=== PATIENT | male | born 1960 | race American Indian/Alaskan Native ===

== ENCOUNTER 2018-01-07 15:51 | Emergency (ER) | payer SELFPAY ==
[2018-01-07 21:04] LABS: Basophils # (Auto) 0.1 K/mm3 (0.0-0.1); Basophils % (Auto) 0.6 % (0.0-1.8); Eosinophils # (Auto) 0.1 K/mm3 (0.0-0.4); Eosinophils % (Auto) 0.4 % (0.0-4.3); Hematocrit 41.6 % (35.5-45.6); Hemoglobin 13.6 gm/dl (11.8-15.2); Lymphocytes # (Auto) 1.5 K/mm3 (1.2-5.4); Lymphocytes % (Auto) 8.6 % (13.4-35.0); Mean Corpuscular HGB Conc 33 % (32-34); Mean Corpuscular Volume 74 fl (84-94); Monocytes # (Auto) 1.2 K/mm3 (0.0-0.8); Monocytes % (Auto) 6.8 % (0.0-7.3); Platelet Count 253 K/mm3 (140-440); Red Blood Count 5.61 M/mm3 (3.65-5.03); Red Cell Distribution Width 16.4 % (13.2-15.2)
[2018-01-07 21:09] LABS: Bilirubin,Urine NEG (Negative); Blood,Urine SM (Negative); Color,Urine Yellow (Yellow); Nitrite,Urine NEG (Negative)
[2018-01-07 21:10] LABS: Mean Corpuscular Hemoglobin 24 pg (28-32)
[2018-01-07 21:16] LABS: BUN/Creatinine Ratio 19; Blood Urea Nitrogen 17 mg/dL (9-20); Calcium 9.5 mg/dL (8.4-10.2); Hemolysis Index 45
[2018-01-07] MEDS ORDERED: NACL 0.9% 1000 ML 1,000 ML IV ONE (21:26)
[2018-01-07] MEDS ORDERED: ROCEPHIN/NS 1 GM/50 ML 1 GM/50 ML BAG IV ONE (21:27)
[2018-01-07 21:30] LABS: Alanine Aminotransferase 14 units/L (7-56); Albumin 4.2 g/dL (3.9-5)
--- NOTE | 2018-01-07 21:30 | Emergency Department Report ---
ED Male HPI - General Chief complaint: Urogenital-Male Stated complaint: FLU LIKE SYMPTOMS Time Seen by Provider: 01/07/18 20:32 Source: patient Mode of arrival: Ambulatory Limitations: No Limitations - History of Present Illness Initial comments: 57-year-old male past medical history none presents with complaint of 2-3 days of weakness dysuria or increased urinary frequency and slight right sided flank pain. Patient is awake alert and oriented 3 denies nausea or vomiting. Patient tolerating by mouth fluids without difficulty. States he has had some chills. Denies chest pain palpitations nausea or vomiting. Patient accompanied by at bedside MD Complaint: dysuria (increased urinary frequency) Onset/Timin -: days(s) Worsens with: none - Related Data Previous Rx's Medication Instructions Recorded Last Taken Type Ibuprofen [Motrin 400 MG tab] 400 mg PO Q8H PRN #20 tablet 03/01/16 Unknown Rx amLODIPine [Norvasc] 5 mg PO DAILY #30 tab 03/01/16 Unknown Rx traMADol [Ultram 50 MG tab] 50 mg PO Q6HR PRN #20 tablet 03/01/16 Unknown Rx Acetaminophen [Acetaminophen TAB] 500 mg PO Q6HR PRN #20 tablet 01/08/18 Unknown Rx Ciprofloxacin HCl [Cipro] 500 mg PO BID #28 tablet 01/08/18 Unknown Rx Phenazopyridine [Pyridium] 100 mg PO TID #6 tab 01/08/18 Unknown Rx Allergies Allergy/AdvReac Type Severity Reaction Status Date / Time No Known Allergies Allergy Unverified 03/01/16 08:57 ED Review of Systems ROS: Stated complaint: FLU LIKE SYMPTOMS Other details as noted in HPI Constitutional: denies: chills, fever Eyes: denies: eye pain, eye discharge, vision change ENT: denies: ear pain, throat pain Respiratory: denies: cough, shortness of breath, wheezing Cardiovascular: denies: chest pain, palpitations Endocrine: no symptoms reported Gastrointestinal: denies: abdominal pain, nausea, diarrhea Genitourinary: frequency. denies: urgency, dysuria Musculoskeletal: denies: back pain, joint swelling, arthralgia Skin: denies: rash, lesions Neurological: denies: headache, weakness, paresthesias Psychiatric: denies: anxiety, depression Hematological/Lymphatic: denies: easy bleeding, easy bruising ED Past Medical Hx - Past Medical History Previous Medical History?: Yes Hx Hypertension: Yes (no meds x 2 yrs) Additional medical history: ulcers, anemia - Surgical History Past Surgical History?: No - Social History Smoking Status: Never Smoker Substance Use Type: None - Medications Home Medications: Home Medications Medication Instructions Recorded Confirmed Last Taken Type Ibuprofen [Motrin 400 MG tab] 400 mg PO Q8H PRN #20 tablet 03/01/16 Unknown Rx amLODIPine [Norvasc] 5 mg PO DAILY #30 tab 03/01/16 Unknown Rx traMADol [Ultram 50 MG tab] 50 mg PO Q6HR PRN #20 tablet 03/01/16 Unknown Rx Acetaminophen [Acetaminophen TAB] 500 mg PO Q6HR PRN #20 tablet 01/08/18 Unknown Rx Ciprofloxacin HCl [Cipro] 500 mg PO BID #28 tablet 01/08/18 Unknown Rx Phenazopyridine [Pyridium] 100 mg PO TID #6 tab 01/08/18 Unknown Rx ED Physical Exam - General Limitations: No Limitations General appearance: alert, in no apparent distress - Head Head exam: Present: atraumatic, normocephalic - Eye Eye exam: Present: normal appearance, PERRL, EOMI - ENT ENT exam: Present: mucous membranes moist - Neck Neck exam: Present: normal inspection - Respiratory Respiratory exam: Present: normal lung sounds bilaterally. Absent: respiratory distress - Cardiovascular Cardiovascular Exam: Present: regular rate, normal rhythm. Absent: systolic murmur, diastolic murmur, rubs, gallop - GI/Abdominal GI/Abdominal exam: Present: soft, normal bowel sounds - Rectal Rectal exam: Present: deferred - Extremities Exam Extremities exam: Present: normal inspection - Back Exam Back exam: Present: normal inspection - Neurological Exam Neurological exam: Present: alert, oriented X3, CN II-XII intact, normal gait - Psychiatric Psychiatric exam: Present: normal affect, normal mood - Skin Skin exam: Present: warm, dry, intact, normal color. Absent: rash ED Course Vital Signs 01/07/18 01/07/18 16:07 20:09 Temperature 97.8 F 99.0 F Pulse Rate 70 70 Respiratory 19 18 Rate Blood Pressure 156/90 Blood Pressure 159/84 [Left] O2 Sat by Pulse 99 97 Oximetry ED Medical Decision Making - Lab Data Result diagrams: 01/07/18 20:48 01/07/18 20:48 - Medical Decision Making A/P: Urinary tract infection, asymptomatic htn 1-case discussed with Dr. Norris 2-CT shows no pyelonephritis, will treat patient empirically with Cipro 500mg bid 14 days course as per Dr. Norris. I gave the patient strict precautions to return to the ED if he experiences inability to tolerate by mouth worsened abdominal pain persistent fever and chills. Pt agreed to this plan 3-follow-up with primary care and urology 4- asymptomatic hypertension. Patient denies chest pain palpitations headache dizziness or paresthesias. Patient to follow up with primary care. Critical care attestation.: If time is entered above; I have spent that time in minutes in the direct care of this critically ill patient, excluding procedure time. ED Disposition Clinical Impression: Asymptomatic hypertension Urinary tract infection Qualifiers: Urinary tract infection type: acute cystitis Hematuria presence: without hematuria Qualified Code(s): N30.00 - Acute cystitis without hematuria Disposition: TO HOME OR SELFCARE Is pt being admited?: No Does the pt Need Aspirin: No Condition: Stable Instructions: Hypertension (ED), Urinary Tract Infection in Men (ED) Prescriptions: Acetaminophen [Acetaminophen TAB] 500 mg PO Q6HR PRN #20 tablet PRN Reason: Fever Ciprofloxacin HCl [Cipro] 500 mg PO BID #28 tablet Phenazopyridine [Pyridium] 100 mg PO TID #6 tab Referrals: [facility] [Provider Group] - 3-5 Days [facility] [Outside] - 3-5 Days [facility] [Outside] - 3-5 Days Forms: Accompanied Note, Work/School Release Form(ED) Time of Disposition: 01:57
[2018-01-07 21:31] LABS: Bilirubin,Direct < 0.2 mg/dL (0-0.2)
[2018-01-07] MEDS ORDERED: cefTRIAXone 1 GM in NACL 0.9% 20 ML IV ONE (22:00)
[2018-01-08] MEDS ORDERED: NACL ONE (00:37)
--- NOTE | 2018-01-08 01:29 | Cat Scan Report ---
FINAL REPORT PROCEDURE: CT ABDOMEN PELVIS W CON TECHNIQUE: Computerized axial tomography of the abdomen and pelvis was performed after the IV injection of iodinated nonionic contrast. HISTORY: pyelonephritis COMPARISON: No prior studies are available for comparison. FINDINGS: Visualized lower thorax: No significant abnormality. Liver: There is fatty infiltration of the liver. There is enhancing mass in the left lobe measuring 3 centimeters. This could be an atypical hemangioma. Possibility of adenoma or malignancy not excluded. Further evaluation with MRI may be helpful.. Spleen: Normal size and attenuation. Gallbladder and biliary system: Normal. Pancreas: Normal. Adrenals: Normal. Kidneys: There are small kidney cysts and tiny nonobstructing stones bilaterally. There is no hydronephrosis.. GI tract: There is no bowel obstruction. There are diverticula of the colon. There is no diverticulitis, colitis, obstruction or mass. The appendix is normal.. Lymph nodes and mesentery: Normal. Vasculature: There is calcified plaque in the abdominal aorta. There is no aneurysm.. Bladder: Normal. Reproductive organs: Normal. Peritoneum: There is no ascites or free air, abscess or adenopathy.. Musculoskeletal structures: No significant abnormality. Other: None. IMPRESSION: There is fatty infiltration of the liver. There is enhancing mass in the left lobe measuring 3 centimeters. This could be an atypical hemangioma. Possibility of adenoma or malignancy not excluded. Further evaluation with MRI may be helpful.. There are small kidney cysts and tiny nonobstructing stones bilaterally. There is no hydronephrosis.. There is no bowel obstruction. There are diverticula of the colon. There is no diverticulitis, colitis, obstruction or mass. The appendix is normal.. There is no ascites or free air, abscess or adenopathy..
[2018-01-08 01:57] VITALS: BP 190/97
== END 2018-01-08 02:07 | disposition home or self-care (01) ==
LOC: ED 15:51
DX: N39.0 Urinary tract infection, site not specified (principal); I10 Essential (primary) hypertension
CPT/HCPCS: 36415; 74177; 80048; 80074; 81001; 82140; 82550; 82805; 84484; 85025; 87086; 93005; 93010; 96361; 96374; 96375; 99284; J0696; J7030; Q9967; 87076; 87186

== ENCOUNTER 2019-10-26 01:51 | Emergency (ER) | payer SELFPAY ==
[2019-10-26] MEDS ORDERED: LISINOPRIL 20 MG TAB PO ONE (02:59)
[2019-10-26] MEDS ORDERED: IBUPROFEN 800 MG TAB PO ONE (03:00)
[2019-10-26] MEDS ORDERED: oxyCODONE /ACETAMINOPHEN 5-325MG TAB PO ONE (03:00)
[2019-10-26] MEDS ORDERED: hydroCHLOROthiazide 25 MG TAB PO ONE (03:01)
--- NOTE | 2019-10-26 03:08 | Emergency Department Report ---
ED General Adult HPI - General Chief complaint: Extremity Injury, Lower Stated complaint: RT FOOT AND TOE PAIN Time Seen by Provider: 10/26/19 02:56 Source: patient Mode of arrival: Ambulatory Limitations: No Limitations - History of Present Illness Initial comments: Mr. Rogers is a 59 yo male with hx of HTN, gout, anemia who presents with right big toe pain for 3 days. Modateraly severe pain with swelling at the joint. No injury. Last flare up several years ago. Has not taken blood pressure medication in over a year. Does not have a PCP or health insurance. He has been symptom free. He explains "I feel fine." Denies headache, chest pain, b lurry vision, paresthesias. According to EMR, SBP 222 mm HG during previous ED evaluation. -: Gradual, days(s) (3) Location: lower extremity Radiation: non-radiation Severity scale (0 -10): 7 Quality: aching Consistency: constant Improves with: none Worsens with: none Associated Symptoms: denies other symptoms - Related Data Previous Rx's Medication Instructions Recorded Last Taken Type Ibuprofen [Motrin 400 MG tab] 400 mg PO Q8H PRN #20 tablet 03/01/16 Unknown Rx amLODIPine 5 mg PO DAILY #30 tab 03/01/16 Unknown Rx traMADoL [Ultram 50 MG tab] 50 mg PO Q6HR PRN #20 tablet 03/01/16 Unknown Rx Acetaminophen [Acetaminophen TAB] 500 mg PO Q6HR PRN #20 tablet 01/08/18 Unknown Rx Ciprofloxacin HCl [Cipro] 500 mg PO BID #28 tablet 01/08/18 Unknown Rx Phenazopyridine [Pyridium] 100 mg PO TID #6 tab 01/08/18 Unknown Rx Amlodipine Besylate [Norvasc] 10 mg PO QAM 30 Days #30 tablet 11/03/18 Unknown Rx Amoxicillin/K Clav Tab [Augmentin 1 tab PO Q12HR #20 tab 11/03/18 Unknown Rx 875MG TAB] Cetirizine HCl [ZyrTEC] 10 mg PO QAM 14 Days #14 capsule 11/03/18 Unknown Rx Fluticasone [Flonase] 1 spray NS QDAY 14 Days #1 bottle 11/03/18 Unknown Rx Ibuprofen [Motrin] 600 mg PO Q8H PRN #12 tablet 11/03/18 Unknown Rx hydroCHLOROthiazide [HCTZ] 25 mg PO QDAY 30 Days #30 tablet 11/03/18 Unknown Rx predniSONE [Deltasone] 50 mg PO QDAY 3 Days #3 tab 11/03/18 Unknown Rx Colchicine 2 tab PO Q1H #3 capsule 10/26/19 Unknown Rx Ibuprofen [Motrin 400 MG tab] 400 mg PO TID 3 Days #9 tablet 10/26/19 Unknown Rx Lisinopril/Hydrochlorothiazide 1 tab PO QDAY 30 Days #30 tab 10/26/19 Unknown Rx [Zestoretic 20-25 mg] oxyCODONE /ACETAMINOPHEN [Percocet 1 tab PO Q6HR PRN #10 tablet 10/26/19 Unknown Rx 5/325] Allergies Allergy/AdvReac Type Severity Reaction Status Date / Time No Known Allergies Allergy Unverified 03/01/16 08:57 ED Review of Systems ROS: Stated complaint: RT FOOT AND TOE PAIN Other details as noted in HPI Comment: All other systems reviewed and negative Constitutional: denies: fever, malaise Cardiovascular: denies: chest pain Gastrointestinal: denies: abdominal pain Musculoskeletal: myalgia ED Past Medical Hx - Past Medical History Previous Medical History?: Yes Hx Hypertension: Yes (no meds x 2 yrs) Additional medical history: ulcers, anemia, GOUT - Surgical History Past Surgical History?: No - Social History Smoking Status: Never Smoker Other Social History: , lives with - Medications Home Medications: Home Medications Medication Instructions Recorded Confirmed Last Taken Type Ibuprofen [Motrin 400 MG tab] 400 mg PO Q8H PRN #20 tablet 03/01/16 Unknown Rx amLODIPine 5 mg PO DAILY #30 tab 03/01/16 Unknown Rx traMADoL [Ultram 50 MG tab] 50 mg PO Q6HR PRN #20 tablet 03/01/16 Unknown Rx Acetaminophen [Acetaminophen TAB] 500 mg PO Q6HR PRN #20 tablet 01/08/18 Unknown Rx Ciprofloxacin HCl [Cipro] 500 mg PO BID #28 tablet 01/08/18 Unknown Rx Phenazopyridine [Pyridium] 100 mg PO TID #6 tab 01/08/18 Unknown Rx Amlodipine Besylate [Norvasc] 10 mg PO QAM 30 Days #30 tablet 11/03/18 Unknown Rx Amoxicillin/K Clav Tab [Augmentin 1 tab PO Q12HR #20 tab 11/03/18 Unknown Rx 875MG TAB] Cetirizine HCl [ZyrTEC] 10 mg PO QAM 14 Days #14 capsule 11/03/18 Unknown Rx Fluticasone [Flonase] 1 spray NS QDAY 14 Days #1 bottle 11/03/18 Unknown Rx Ibuprofen [Motrin] 600 mg PO Q8H PRN #12 tablet 11/03/18 Unknown Rx hydroCHLOROthiazide [HCTZ] 25 mg PO QDAY 30 Days #30 tablet 11/03/18 Unknown Rx predniSONE [Deltasone] 50 mg PO QDAY 3 Days #3 tab 11/03/18 Unknown Rx Colchicine 2 tab PO Q1H #3 capsule 10/26/19 Unknown Rx Ibuprofen [Motrin 400 MG tab] 400 mg PO TID 3 Days #9 tablet 10/26/19 Unknown Rx Lisinopril/Hydrochlorothiazide 1 tab PO QDAY 30 Days #30 tab 10/26/19 Unknown Rx [Zestoretic 20-25 mg] oxyCODONE /ACETAMINOPHEN [Percocet 1 tab PO Q6HR PRN #10 tablet 10/26/19 Unknown Rx 5/325] ED Physical Exam - General Limitations: No Limitations General appearance: alert, in no apparent distress - Head Head exam: Present: atraumatic, normocephalic - Eye Eye exam: Present: normal appearance - ENT ENT exam: Present: mucous membranes moist - Neck Neck exam: Present: normal inspection, full ROM - Respiratory Respiratory exam: Present: normal lung sounds bilaterally. Absent: respiratory distress, wheezes, rales - Cardiovascular Cardiovascular Exam: Present: regular rate, normal rhythm, normal heart sounds. Absent: systolic murmur, diastolic murmur, rubs, gallop - GI/Abdominal GI/Abdominal exam: Present: soft, normal bowel sounds. Absent: distended, tenderness, guarding, rebound - Extremities Exam Extremities exam: Present: other (right foot: great toe mild edema, redness tenderness slight MTP lichenification of skin at heel posterior foot) - Back Exam Back exam: Present: normal inspection - Neurological Exam Neurological exam: Present: alert, oriented X3 - Psychiatric Psychiatric exam: Present: normal affect, normal mood - Skin Skin exam: Present: warm, dry, intact, normal color. Absent: rash ED Course Vital Signs 10/26/19 10/26/19 10/26/19 02:26 02:57 03:00 Temperature 97.8 F 98 F Pulse Rate 52 L 56 L 53 L Respiratory 18 19 20 Rate Blood Pressure 230/106 225/112 Blood Pressure 223/102 [Left] O2 Sat by Pulse 97 99 99 Oximetry 10/26/19 10/26/19 10/26/19 03:16 03:30 04:00 Temperature Pulse Rate 50 L 50 L 51 L Respiratory 15 16 15 Rate Blood Pressure 225/112 213/113 180/87 Blood Pressure [Left] O2 Sat by Pulse 100 99 98 Oximetry ED Medical Decision Making - Lab Data Result diagrams: 10/26/19 02:48 10/26/19 02:48 - Medical Decision Making 1. Arthropathy of the right foot prescribed Percocet ibuprofen colchicine given referral to outside clinic 2. hypertensive urgency, I provided verbal and written education regarding diagnosis and potential complications of untreated hypertension. No evidence of end organ damage. Chemistry within normal limits. Normal kidney function. I have prescribed lisinopril and hydrochlorothiazide. I educated patient on the risk of angioedema and hypokalemia. Discharge home. Given referrals to outside physician and clinic. I have review labs. H&H within normal limits. Nonspecific leukocytosis. I do not suspect sepsis or acute infection. I do not suspect foot cellulitis. Critical care attestation.: If time is entered above; I have spent that time in minutes in the direct care of this critically ill patient, excluding procedure time. ED Disposition Clinical Impression: Gout attack, Gout of right foot, Hypertensive urgency, malignant Disposition: DC-01 TO HOME OR SELFCARE Is pt being admited?: No Does the pt Need Aspirin: No Condition: Stable Instructions: Acute Gouty Arthritis (ED), Hypertension (ED) Prescriptions: Colchicine 2 tab PO Q1H #3 capsule Ibuprofen [Motrin 400 MG tab] 400 mg PO TID 3 Days #9 tablet oxyCODONE /ACETAMINOPHEN [Percocet 5/325] 1 tab PO Q6HR PRN #10 tablet PRN Reason: Pain Lisinopril/Hydrochlorothiazide [Zestoretic 20-25 mg] 1 tab PO QDAY 30 Days #30 tab Referrals: ULISES BRANTLEY MD [Staff Physician] - 3-5 Days [facility] [Outside] - 3-5 Days
[2019-10-26 03:17] LABS: Basophils # (Auto) 0.1 K/mm3 (0.0-0.1); Basophils % (Auto) 0.7 % (0.0-1.8); Eosinophils # (Auto) 0.3 K/mm3 (0.0-0.4); Eosinophils % (Auto) 2.2 % (0.0-4.3); Hematocrit 40.9 % (35.5-45.6); Hemoglobin 13.2 gm/dl (11.8-15.2); Lymphocytes # (Auto) 2.4 K/mm3 (1.2-5.4); Mean Corpuscular HGB Conc 32 % (32-34); Mean Corpuscular Volume 74 fl (84-94); Monocytes # (Auto) 0.9 K/mm3 (0.0-0.8); Monocytes % (Auto) 6.6 % (0.0-7.3); Platelet Count 281 K/mm3 (140-440); Red Blood Count 5.54 M/mm3 (3.65-5.03); Red Cell Distribution Width 17.1 % (13.2-15.2)
[2019-10-26 03:39] LABS: Alanine Aminotransferase 16 units/L (7-56); Albumin 4.3 g/dL (3.9-5); BUN/Creatinine Ratio 18; Blood Urea Nitrogen 18 mg/dL (9-20); Calcium 9.7 mg/dL (8.4-10.2); Hemolysis Index 6
[2019-10-26 05:25] VITALS: BP 175/91
== END 2019-10-26 05:10 | disposition home or self-care (01) ==
LOC: ED 01:51
DX: M10.9 Gout, unspecified (principal); I16.0 Hypertensive urgency; I10 Essential (primary) hypertension
CPT/HCPCS: 36415; 80053; 85025

== ENCOUNTER 2019-12-15 17:45 | Emergency (ER) | payer SELFPAY ==
--- NOTE | 2019-12-15 18:05 | Emergency Department Report ---
Blank Doc - Documentation Documentation: 59-year-old male that presents with abdominal pain and diarrhea. This initial assessment/diagnostic orders/clinical plan/treatment(s) is/are subject to change based on patient's health status, clinical progression and re- assessment by fellow clinical providers in the ED. Further treatment and workup at subsequent clinical providers discretion. Patient/guardians urged not to elope from the ED as their condition may be serious if not clinically assessed and managed. Initial orders include: 1- Patient sent to [facility] for further evaluation and treatment 2- labs 3- UA
[2019-12-15 18:07] VITALS: BP 178/85
[2019-12-15 18:29] LABS: Bilirubin,Urine NEG (Negative); Blood,Urine SM (Negative); Color,Urine Yellow (Yellow); Hyaline Casts,Urine 1 /LPF; Mucus,Urine 1+ /HPF; Protein,Urine <15 mg/dL mg/dL (Negative); Urobilinogen,Urine < 2.0 mg/dL (<2.0)
[2019-12-15 18:51] LABS: Basophils # (Auto) 0.1 K/mm3 (0.0-0.1); Basophils % (Auto) 0.4 % (0.0-1.8); Eosinophils # (Auto) 0.3 K/mm3 (0.0-0.4); Eosinophils % (Auto) 2.5 % (0.0-4.3); Hematocrit 40.6 % (35.5-45.6); Hemoglobin 13.6 gm/dl (11.8-15.2); Lymphocytes % (Auto) 8.1 % (13.4-35.0); Mean Corpuscular HGB Conc 34 % (32-34); Mean Corpuscular Volume 73 fl (84-94); Monocytes % (Auto) 7.6 % (0.0-7.3); Platelet Count 315 K/mm3 (140-440); Red Blood Count 5.57 M/mm3 (3.65-5.03)
[2019-12-15 19:13] LABS: Alanine Aminotransferase 11 units/L (7-56); Albumin 3.9 g/dL (3.9-5); BUN/Creatinine Ratio 13; Blood Urea Nitrogen 12 mg/dL (9-20); Calcium 9.8 mg/dL (8.4-10.2); Hemolysis Index 4
[2019-12-15] MEDS ORDERED: fentaNYL 100 MCG/2 ML INJ IV ONE (21:35)
[2019-12-15] MEDS ORDERED: ONDANSETRON 4 MG/2 ML INJ IV ONE (21:35)
[2019-12-15] MEDS ORDERED: SODIUM CHLORIDE 0.9% 1000 ML 1,000 ML IV ONE (21:35)
--- NOTE | 2019-12-15 21:40 | Emergency Department Report ---
HPI - General Chief Complaint: Abdominal Pain Time Seen by Provider: 12/15/19 18:04 - HPI HPI: Room 38 The patient is a 59-year-old male presented with a chief complaint of a dull pain and diarrhea. Patient states his symptoms began 2.5 days ago with m idepigastric hurting pain that has been intermittent and associated with significant diarrhea. Patient denies nausea vomiting. Patient denies recent antibiotic use. Patient denies sick contacts. Patient denies history of fever. The patient gives his abdominal pain a score of 8/10 Location: [See above] Duration: [See above] Quality: [See above] Severity: [See above] Timing: [See above] Context: [See above] Modifying factors: [See above] Associated signs and symptoms: [see above] ED Past Medical Hx - Past Medical History Hx Hypertension: Yes (no meds x 2 yrs) Additional medical history: ulcers, anemia, GOUT - Surgical History Past Surgical History?: No - Family History Family history: no significant - Social History Smoking Status: Former Smoker (none 13 years) Substance Use Type: None (denies illicit drug use), Alcohol (rarely) - Medications Home Medications: Home Medications Medication Instructions Recorded Confirmed Last Taken Type Ibuprofen [Motrin 400 MG tab] 400 mg PO Q8H PRN #20 tablet 03/01/16 Unknown Rx amLODIPine 5 mg PO DAILY #30 tab 03/01/16 Unknown Rx traMADoL [Ultram 50 MG tab] 50 mg PO Q6HR PRN #20 tablet 03/01/16 Unknown Rx Acetaminophen [Acetaminophen TAB] 500 mg PO Q6HR PRN #20 tablet 01/08/18 Unknown Rx Ciprofloxacin HCl [Cipro] 500 mg PO BID #28 tablet 01/08/18 Unknown Rx Phenazopyridine [Pyridium] 100 mg PO TID #6 tab 01/08/18 Unknown Rx Amlodipine Besylate [Norvasc] 10 mg PO QAM 30 Days #30 tablet 11/03/18 Unknown Rx Amoxicillin/K Clav Tab [Augmentin 1 tab PO Q12HR #20 tab 11/03/18 Unknown Rx 875MG TAB] Cetirizine HCl [ZyrTEC] 10 mg PO QAM 14 Days #14 capsule 11/03/18 Unknown Rx Fluticasone [Flonase] 1 spray NS QDAY 14 Days #1 bottle 11/03/18 Unknown Rx Ibuprofen [Motrin] 600 mg PO Q8H PRN #12 tablet 11/03/18 Unknown Rx hydroCHLOROthiazide [HCTZ] 25 mg PO QDAY 30 Days #30 tablet 11/03/18 Unknown Rx predniSONE [Deltasone] 50 mg PO QDAY 3 Days #3 tab 11/03/18 Unknown Rx Colchicine 2 tab PO Q1H #3 capsule 10/26/19 Unknown Rx Ibuprofen [Motrin 400 MG tab] 400 mg PO TID 3 Days #9 tablet 10/26/19 Unknown Rx Lisinopril/Hydrochlorothiazide 1 tab PO QDAY 30 Days #30 tab 10/26/19 Unknown Rx [Zestoretic 20-25 mg] oxyCODONE /ACETAMINOPHEN [Percocet 1 tab PO Q6HR PRN #10 tablet 10/26/19 Unknown Rx 5/325] Ciprofloxacin HCl [Ciprofloxacin 500 mg PO Q12HR #20 tab 12/15/19 Unknown Rx TAB] Diphenoxylate/Atropine [Lomotil] 1 - 2 tab PO QID PRN #20 tablet 12/15/19 Unknown Rx HYDROcodone/APAP 5-325 [[place] 1 - 2 each PO Q6HR PRN #14 tablet 12/15/19 Unknown Rx 5/325] metroNIDAZOLE [Flagyl] 500 mg PO Q8HR #30 tablet 12/15/19 Unknown Rx ED Review of Systems ROS: Stated complaint: ABD PAIN/DIARRHEA Other details as noted in HPI Constitutional: denies: fever Eyes: denies: eye pain ENT: denies: throat pain Respiratory: no symptoms reported Cardiovascular: denies: chest pain Endocrine: no symptoms reported Gastrointestinal: abdominal pain, diarrhea. denies: nausea, vomiting Genitourinary: denies: dysuria Musculoskeletal: denies: back pain Neurological: denies: headache Physical Exam - Physical Exam Vital Signs: Vital Signs 12/15/19 18:05 Temperature 98.6 F Pulse Rate 66 Respiratory 18 Rate Blood Pressure 178/85 O2 Sat by Pulse 98 Oximetry Physical Exam: GENERAL: The patient is well-developed well-nourished male lying on stretcher not appearing to be in acute distress. [] HEENT: Normocephalic. Atraumatic. Extraocular motions are intact. Patient has moist mucous membranes. NECK: Supple. Trachea midline CHEST/LUNGS: Clear to auscultation. There is no respiratory distress noted. HEART/CARDIOVASCULAR: Regular. There is no tachycardia. There is no gallop rub or murmur. ABDOMEN: Abdomen is soft, with mild discomfort to palpation in the midepigastric and right upper quadrant. There is no rebound or guarding. Patient has normal bowel sounds. There is no abdominal distention. SKIN: There is no rash. There is no edema. There is no diaphoresis. NEURO: The patient is awake, alert, and oriented. The patient is cooperative. The patient has normal speech MUSCULOSKELETAL: There is no evidence of acute injury. ED Course Vital Signs 12/15/19 18:05 Temperature 98.6 F Pulse Rate 66 Respiratory 18 Rate Blood Pressure 178/85 O2 Sat by Pulse 98 Oximetry ED Medical Decision Making - Lab Data Result diagrams: 12/15/19 18:32 12/15/19 18:32 - Radiology Data Radiology results: report reviewed (CT abdomen and pelvis), image reviewed (CT abdomen and pelvis) [place] [address] Cat Scan Report Signed Patient: MANDY YANG MR#: [id number] 6 : 1960 Acct:[id number] Age/Sex: 59 / M ADM Date: 12/15/19 Loc: ED Attending Dr: Ordering Physician: RELL WEST MD Date of Service: 12/15/19 Procedure(s): CT abdomen pelvis w con Accession Number(s): [id number] cc: RELL WEST MD CT ABDOMEN AND PELVIS WITH IV CONTRAST INDICATION: epigastric abdominal pain, diarrhea. COMPARISON: CT 01/08/2018. TECHNIQUE: All CT scans at this facility use dose modulation, automated exposure control, iterative reconstruction or weight based dosing, when appropriate, to reduce radiation dose to as low as reasonably achievable. FINDINGS: Lung Bases: No significant abnormality. Skeletal System: No acute abnormality. ABDOMEN: Liver: No acute findings. Hypodense lesion in the left lobe with mild peripheral enhancement is likely a hemangioma. Gallbladder: No significant abnormality. Bile Ducts: No significant abnormality. Pancreas: No significant abnormality. Spleen: No significant abnormality. Adrenals: No significant abnormality. Right Kidney: There are a few punctate nonobstructing calyceal stones. Punctate renal cysts are again noted as well. Left Kidney: There is a single nonobstructing calyceal stones. Simple cysts are again noted. Upper GI tract: No significant abnormality. Lymph Nodes: No significant adenopathy. Aorta: No significant abnormality. Additional Findings: No significant abnormality. PELVIS: Colon: There is extensive diverticulosis, greatest in the transverse colon. Distal sigmoid and rectal wall thickening is noted. Urinary Bladder and Distal Ureters: No significant abnormality. Appendix: No significant abnormality. Lymph Nodes: No significant adenopathy. Additional Findings: None. IMPRESSION: 1. Distal colitis no free fluid or obstruction. 2. Incidental findings, as above. Signer Name: Steve Nelson MD Signed: 12/15/2019 10:53 PM Workstation Name: [id number] Transcribed By: SW Dictated By: Steve Nelson MD Electronically Authenticated By: Steve Nelson MD Signed Date/Time: 12/15/192252 DD/ 48 TD/TT: - Differential Diagnosis pancreatitis, gastroenteritis, enteritis, partial small bowel obstruction Critical care attestation.: If time is entered above; I have spent that time in minutes in the direct care of this critically ill patient, excluding procedure time. ED Disposition Clinical Impression: Acute abdominal pain, Acute colitis Disposition: - TO HOME OR SELFCARE Is pt being admited?: No Does the pt Need Aspirin: No Condition: Stable Instructions: Infectious Colitis (ED) Additional Instructions: Return to the emergency department should you develop worsening symptoms, inabi lity to tolerate food or liquids, high fever or any other concerns Prescriptions: Ciprofloxacin HCl [Ciprofloxacin TAB] 500 mg PO Q12HR #20 tab metroNIDAZOLE [Flagyl] 500 mg PO Q8HR #30 tablet Diphenoxylate/Atropine [Lomotil] 1 - 2 tab PO QID PRN #20 tablet PRN Reason: Diarrhea HYDROcodone/APAP 5-325 [[place] 5/325] 1 - 2 each PO Q6HR PRN #14 tablet PRN Reason: Pain Referrals: ARGENTINA SINGLETARY MD [Staff Physician] - 3-5 Days (Dr. Singletary is a make up operator helper. Please follow-up with him for further evaluation) Time of Disposition: 23:08
--- NOTE | 2019-12-15 22:57 | Cat Scan Report ---
CT ABDOMEN AND PELVIS WITH IV CONTRAST INDICATION: epigastric abdominal pain, diarrhea. COMPARISON: CT 01/08/2018. TECHNIQUE: All CT scans at this facility use dose modulation, automated exposure control, iterative reconstructi on or weight based dosing, when appropriate, to reduce radiation dose to as low as reasonably achieva ble. FINDINGS: Lung Bases: No significant abnormality. Skeletal System: No acute abnormality. ABDOMEN: Liver: No acute findings. Hypodense lesion in the left lobe with mild peripheral enhancement is likel y a hemangioma. Gallbladder: No significant abnormality. Bile Ducts: No significant abnormality. Pancreas: No significant abnormality. Spleen: No significant abnormality. Adrenals: No significant abnormality. Right Kidney: There are a few punctate nonobstructing calyceal stones. Punctate renal cysts are again noted as well. Left Kidney: There is a single nonobstructing calyceal stones. Simple cysts are again noted. Upper GI tract: No significant abnormality. Lymph Nodes: No significant adenopathy. Aorta: No significant abnormality. Additional Findings: No significant abnormality. PELVIS: Colon: There is extensive diverticulosis, greatest in the transverse colon. Distal sigmoid and rect al wall thickening is noted. Urinary Bladder and Distal Ureters: No significant abnormality. Appendix: No significant abnormality. Lymph Nodes: No significant adenopathy. Additional Findings: None. IMPRESSION: 1. Distal colitis no free fluid or obstruction. 2. Incidental findings, as above. Signer Name: Steve Nelson MD Signed: 12/15/2019 10:53 PM Workstation Name: [id number]
[2019-12-15] MEDS ORDERED: DIPHENOXYLATE/ATROPINE TAB PO ONE (23:05)
== END 2019-12-15 23:30 | disposition home or self-care (01) ==
LOC: ED 17:45
DX: K52.89 Other specified noninfective gastroenteritis and colitis (principal)
CPT/HCPCS: 36415; 74177; 80053; 81001; 83690; 85025; 96361; 96374; 96375; 99284; J2405; J3010; J7030; Q9967

== ENCOUNTER 2019-12-25 17:28 | Emergency (ER) | payer SELFPAY ==
[2019-12-25 18:04] VITALS: BP 214/97
--- NOTE | 2019-12-25 18:48 | Emergency Department Report ---
ED Lower Extremity HPI - General Chief Complaint: Extremity Problem,Nontraumatic Stated Complaint: FEET PAIN, SWOLLEN Time Seen by Provider: 12/25/19 18:44 Source: patient Mode of arrival: Ambulatory Limitations: No Limitations - History of Present Illness Initial Comments: This is a 59-year-old male nontoxic, well nourished in appearance, no acute sign s of distress presents to the ED with c/o of acute on chronic left ankle swelling and pain. Patient stated history of gout and symptoms are similar. Patient denies any new trauma or injuries. Denies decreased ROM, joint swelling, redness, or abnormal gait. Denies any fever, chills, nausea, vomiting, headache, stiff neck, chest pain or shortness of breath. Patient denies any numbness or tingling. Denies any allergies. -: days(s) Injury: Ankle: Left Severity: mild Severity scale (0 -10): 3 Improves With: nothing Worsens With: nothing Associated Symptoms: swelling, able to partially bear weight, ambulatory. denies: snap/pop sensation, numbness, tingling, unable to bear weight - Related Data Previous Rx's Medication Instructions Recorded Last Taken Type Ibuprofen [Motrin 400 MG tab] 400 mg PO Q8H PRN #20 tablet 03/01/16 Unknown Rx amLODIPine 5 mg PO DAILY #30 tab 03/01/16 Unknown Rx traMADoL [Ultram 50 MG tab] 50 mg PO Q6HR PRN #20 tablet 03/01/16 Unknown Rx Acetaminophen [Acetaminophen TAB] 500 mg PO Q6HR PRN #20 tablet 01/08/18 Unknown Rx Ciprofloxacin HCl [Cipro] 500 mg PO BID #28 tablet 01/08/18 Unknown Rx Phenazopyridine [Pyridium] 100 mg PO TID #6 tab 01/08/18 Unknown Rx Amlodipine Besylate [Norvasc] 10 mg PO QAM 30 Days #30 tablet 11/03/18 Unknown Rx Amoxicillin/K Clav Tab [Augmentin 1 tab PO Q12HR #20 tab 11/03/18 Unknown Rx 875MG TAB] Cetirizine HCl [ZyrTEC] 10 mg PO QAM 14 Days #14 capsule 11/03/18 Unknown Rx Fluticasone [Flonase] 1 spray NS QDAY 14 Days #1 bottle 11/03/18 Unknown Rx Ibuprofen [Motrin] 600 mg PO Q8H PRN #12 tablet 11/03/18 Unknown Rx hydroCHLOROthiazide [HCTZ] 25 mg PO QDAY 30 Days #30 tablet 11/03/18 Unknown Rx predniSONE [Deltasone] 50 mg PO QDAY 3 Days #3 tab 11/03/18 Unknown Rx Colchicine 2 tab PO Q1H #3 capsule 10/26/19 Unknown Rx Ibuprofen [Motrin 400 MG tab] 400 mg PO TID 3 Days #9 tablet 10/26/19 Unknown Rx Lisinopril/Hydrochlorothiazide 1 tab PO QDAY 30 Days #30 tab 10/26/19 Unknown Rx [Zestoretic 20-25 mg] oxyCODONE /ACETAMINOPHEN [Percocet 1 tab PO Q6HR PRN #10 tablet 10/26/19 Unknown Rx 5/325] Ciprofloxacin HCl [Ciprofloxacin 500 mg PO Q12HR #20 tab 12/15/19 Unknown Rx TAB] Diphenoxylate/Atropine [Lomotil] 1 - 2 tab PO QID PRN #20 tablet 12/15/19 Unknown Rx HYDROcodone/APAP 5-325 [[place] 1 - 2 each PO Q6HR PRN #14 tablet 12/15/19 Unknown Rx 5/325] metroNIDAZOLE [Flagyl] 500 mg PO Q8HR #30 tablet 12/15/19 Unknown Rx Allergies Allergy/AdvReac Type Severity Reaction Status Date / Time No Known Allergies Allergy Unverified 03/01/16 08:57 ED Review of Systems ROS: Stated complaint: FEET PAIN, SWOLLEN Other details as noted in HPI Constitutional: denies: chills, fever Eyes: denies: eye pain, eye discharge, vision change ENT: denies: ear pain, throat pain Respiratory: denies: cough, shortness of breath, wheezing Cardiovascular: denies: chest pain, palpitations Endocrine: no symptoms reported Gastrointestinal: denies: abdominal pain, nausea, diarrhea Genitourinary: denies: urgency, dysuria Musculoskeletal: denies: back pain, joint swelling, arthralgia Skin: denies: rash, lesions Neurological: denies: headache, weakness, paresthesias Psychiatric: denies: anxiety, depression Hematological/Lymphatic: denies: easy bleeding, easy bruising ED Past Medical Hx - Past Medical History Previous Medical History?: Yes Hx Hypertension: Yes (no meds x 2 yrs) Additional medical history: ulcers, anemia, GOUT - Surgical History Past Surgical History?: No - Social History Smoking Status: Never Smoker Substance Use Type: None - Medications Home Medications: Home Medications Medication Instructions Recorded Confirmed Last Taken Type Ibuprofen [Motrin 400 MG tab] 400 mg PO Q8H PRN #20 tablet 03/01/16 Unknown Rx amLODIPine 5 mg PO DAILY #30 tab 03/01/16 Unknown Rx traMADoL [Ultram 50 MG tab] 50 mg PO Q6HR PRN #20 tablet 03/01/16 Unknown Rx Acetaminophen [Acetaminophen TAB] 500 mg PO Q6HR PRN #20 tablet 01/08/18 Unknown Rx Ciprofloxacin HCl [Cipro] 500 mg PO BID #28 tablet 01/08/18 Unknown Rx Phenazopyridine [Pyridium] 100 mg PO TID #6 tab 01/08/18 Unknown Rx Amlodipine Besylate [Norvasc] 10 mg PO QAM 30 Days #30 tablet 11/03/18 Unknown Rx Amoxicillin/K Clav Tab [Augmentin 1 tab PO Q12HR #20 tab 11/03/18 Unknown Rx 875MG TAB] Cetirizine HCl [ZyrTEC] 10 mg PO QAM 14 Days #14 capsule 11/03/18 Unknown Rx Fluticasone [Flonase] 1 spray NS QDAY 14 Days #1 bottle 11/03/18 Unknown Rx Ibuprofen [Motrin] 600 mg PO Q8H PRN #12 tablet 11/03/18 Unknown Rx hydroCHLOROthiazide [HCTZ] 25 mg PO QDAY 30 Days #30 tablet 11/03/18 Unknown Rx predniSONE [Deltasone] 50 mg PO QDAY 3 Days #3 tab 11/03/18 Unknown Rx Colchicine 2 tab PO Q1H #3 capsule 10/26/19 Unknown Rx Ibuprofen [Motrin 400 MG tab] 400 mg PO TID 3 Days #9 tablet 10/26/19 Unknown Rx Lisinopril/Hydrochlorothiazide 1 tab PO QDAY 30 Days #30 tab 10/26/19 Unknown Rx [Zestoretic 20-25 mg] oxyCODONE /ACETAMINOPHEN [Percocet 1 tab PO Q6HR PRN #10 tablet 10/26/19 Unknown Rx 5/325] Ciprofloxacin HCl [Ciprofloxacin 500 mg PO Q12HR #20 tab 12/15/19 Unknown Rx TAB] Diphenoxylate/Atropine [Lomotil] 1 - 2 tab PO QID PRN #20 tablet 12/15/19 Unknown Rx HYDROcodone/APAP 5-325 [[place] 1 - 2 each PO Q6HR PRN #14 tablet 12/15/19 Unknown Rx 5/325] metroNIDAZOLE [Flagyl] 500 mg PO Q8HR #30 tablet 12/15/19 Unknown Rx ED Physical Exam - General Limitations: No Limitations General appearance: alert, in no apparent distress - Head Head exam: Present: atraumatic, normocephalic - Extremities Exam Extremities exam: Present: normal inspection, full ROM, tenderness, normal capillary refill. Absent: joint swelling, calf tenderness - Expanded Lower Extremity Exam Left Hip exam: Present: normal inspection, full ROM. Absent: tenderness, swelling Upper Leg exam: Present: normal inspection, full ROM. Absent: tenderness, swelling Knee exam: Present: normal inspection, full ROM. Absent: tenderness, swelling Lower Leg exam: Present: normal inspection, full ROM. Absent: tenderness, swelling Ankle exam: Present: normal inspection, full ROM, tenderness, swelling. Absent: abrasion, laceration, ecchymosis, deformity, crepidus, dislocation, erythema, anterior draw sign Foot/Toe exam: Present: normal inspection, full ROM. Absent: tenderness, swelling Neuro vascular tendon exam: Present: no vascular compromise Gait: Positive: observed and limited by pain - Back Exam Back exam: Present: normal inspection, full ROM - Neurological Exam Neurological exam: Present: alert, oriented X3, normal gait - Psychiatric Psychiatric exam: Present: normal affect, normal mood - Skin Skin exam: Present: warm, dry, intact, normal color. Absent: rash ED Course Vital Signs 12/25/19 18:02 Temperature 97.5 F L Pulse Rate 56 L Respiratory 18 Rate Blood Pressure 214/97 O2 Sat by Pulse 98 Oximetry - Reevaluation(s) Reevaluation #1: 12/25/19 18:51 Patient is speaking in full sentences with no signs of distress noted. ED Lower Extremity MDM - Medical Decision Making This is a 59-year-old male that presents with gout flare. Patient is stable and was examined by me. Exam does not show any acute conditions. No joint effusion, no redness, no decreased ROM. Normal gait. No signs of cellulitits or septic joint. Patient was instructed to Follow-up with a orthopedic and primary care doctor doctor in 3-5 days or if symptoms worsen and continue return to emergency room as soon as possible. At time of discharge, the patient does not seem toxic or ill in appearance. No acute signs of distress noted. Patient agrees to discharge treatment plan of care. No further questions noted by the patient. According to ACEP HTN guidelines, In ED patients with asymptomatic markedly elevated blood pressure, routine screening for acute target organ injury (eg, serum creatinine, urinalysis, ECG) is not required; In patients with asymptomatic markedly elevated blood pressure, routine ED medical intervention is not required. Critical care attestation.: If time is entered above; I have spent that time in minutes in the direct care of this critically ill patient, excluding procedure time. ED Disposition Clinical Impression: HTN (hypertension) Qualifiers: Hypertension type: unspecified Qualified Code(s): I10 - Essential (primary) hypertension Gout flare Qualifiers: Gout site: ankle Gout etiology: unspecified cause Laterality: left Qualified Code(s): M10.9 - Gout, unspecified Disposition: MED SCREENING EXAM-LEFT Is pt being admited?: No Does the pt Need Aspirin: No Condition: Stable Instructions: Hypertension (ED) Additional Instructions: Follow-up with a orthopedic and primary care doctor doctor in 3-5 days or if symptoms worsen and continue return to emergency room as soon as possible. Referrals: PRIMARY CAREMD [Referring] - 3-5 Days ULISES BRANTLEY MD [Staff Physician] - 3-5 Days HALIMA SHINE MD [Staff Physician] - 3-5 Days [facility] [Outside] - 3-5 Days
== END 2019-12-25 19:49 | disposition left against medical advice (07) ==
LOC: ED 17:28
DX: M10.9 Gout, unspecified (principal); I10 Essential (primary) hypertension; Z79.899 Other long term (current) drug therapy
CPT/HCPCS: 99281

== ENCOUNTER 2021-11-26 14:11 | Emergency (ER) | payer SELFPAY ==
--- NOTE | 2021-11-26 18:12 | Emergency Department Report ---
ED General Adult HPI - General Chief complaint: High BP Stated complaint: high b/p PUI?: No Time Seen by Provider: 11/26/21 17:58 Source: patient Mode of arrival: Stretcher Limitations: No Limitations - History of Present Illness Initial comments: Chief complaint: My blood pressure is high. I was too sick to work. HPI: This is a 61-year-old male with history of hypertension, gout, anemia who presents with generalized weakness and fatigue. 5 days ago patient had abdominal pain after drinking alcohol. Abdominal pain did resolve. Now he feels too weak to work. He felt as if he was dehydrated. He feels much better now but needs documentation to return to work. He denies fever. He denies diarrhea or constipation. He treats blood pressure with garlic tablets and vinegar. He is unable to afford healthcare without insurance. -: Gradual, days(s) (5 days generalized weakness) Location: abdomen Severity scale (0 -10): 0 Consistency: now resolved Improves with: other (Hydration fluids) Associated Symptoms: headaches (Headache earlier this week now resolved) Treatments Prior to Arrival: none - Related Data Previous Rx's Medication Instructions Recorded Last Taken Type Ibuprofen [Motrin 400 MG tab] 400 mg PO Q8H PRN #20 tablet 03/01/16 Unknown Rx amLODIPine 5 mg PO DAILY #30 tab 03/01/16 Unknown Rx traMADoL [Ultram 50 MG tab] 50 mg PO Q6HR PRN #20 tablet 03/01/16 Unknown Rx Acetaminophen [Acetaminophen TAB] 500 mg PO Q6HR PRN #20 tablet 01/08/18 Unknown Rx Ciprofloxacin HCl [Cipro] 500 mg PO BID #28 tablet 01/08/18 Unknown Rx Phenazopyridine [Pyridium] 100 mg PO TID #6 tab 01/08/18 Unknown Rx Amlodipine Besylate [Norvasc] 10 mg PO QAM 30 Days #30 tablet 11/03/18 Unknown Rx Amoxicillin/K Clav Tab [Augmentin 1 tab PO Q12HR #20 tab 11/03/18 Unknown Rx 875MG TAB] Cetirizine HCl [ZyrTEC] 10 mg PO QAM 14 Days #14 capsule 11/03/18 Unknown Rx Fluticasone [Flonase] 1 spray NS QDAY 14 Days #1 bottle 11/03/18 Unknown Rx Ibuprofen [Motrin] 600 mg PO Q8H PRN #12 tablet 11/03/18 Unknown Rx hydroCHLOROthiazide [HCTZ] 25 mg PO QDAY 30 Days #30 tablet 11/03/18 Unknown Rx predniSONE [Deltasone] 50 mg PO QDAY 3 Days #3 tab 11/03/18 Unknown Rx Colchicine 2 tab PO Q1H #3 capsule 10/26/19 Unknown Rx Ibuprofen [Motrin 400 MG tab] 400 mg PO TID 3 Days #9 tablet 10/26/19 Unknown Rx Lisinopril/Hydrochlorothiazide 1 tab PO QDAY 30 Days #30 tab 10/26/19 Unknown Rx [Zestoretic 20-25 mg] oxyCODONE /ACETAMINOPHEN [Percocet 1 tab PO Q6HR PRN #10 tablet 10/26/19 Unknown Rx 5/325] Ciprofloxacin HCl [Ciprofloxacin 500 mg PO Q12HR #20 tab 12/15/19 Unknown Rx TAB] Diphenoxylate/Atropine [Lomotil] 1 - 2 tab PO QID PRN #20 tablet 12/15/19 Unkno wn Rx HYDROcodone/APAP 5-325 [[place] 1 - 2 each PO Q6HR PRN #14 tablet 12/15/19 Unknown Rx 5/325] metroNIDAZOLE [Flagyl] 500 mg PO Q8HR #30 tablet 12/15/19 Unknown Rx Valsartan/Hydrochlorothiazide 1 each PO DAILY #30 tablet 11/26/21 Unknown Rx [Valsartan-Hctz 80-12.5 mg Tab] Allergies Allergy/AdvReac Type Severity Reaction Status Date / Time No Known Allergies Allergy Verified 11/26/21 17:13 ED Review of Systems ROS: Stated complaint: high b/p Other details as noted in HPI Comment: All other systems reviewed and negative Constitutional: malaise. denies: chills, fever Respiratory: cough. denies: shortness of breath Cardiovascular: denies: chest pain Gastrointestinal: abdominal pain. denies: nausea, vomiting, diarrhea Neurological: headache ED Past Medical Hx - Past Medical History Previous Medical History?: Yes Hx Hypertension: Yes (no meds x 2 yrs) Additional medical history: ulcers, anemia, GOUT - Surgical History Past Surgical History?: No - Social History Smoking Status: Never Smoker Substance Use Type: Alcohol - Medications Home Medications: Home Medications Medication Instructions Recorded Confirmed Last Taken Type Ibuprofen [Motrin 400 MG tab] 400 mg PO Q8H PRN #20 tablet 03/01/16 Unknown Rx amLODIPine 5 mg PO DAILY #30 tab 03/01/16 Unknown Rx traMADoL [Ultram 50 MG tab] 50 mg PO Q6HR PRN #20 tablet 03/01/16 Unknown Rx Acetaminophen [Acetaminophen TAB] 500 mg PO Q6HR PRN #20 tablet 01/08/18 Unknown Rx Ciprofloxacin HCl [Cipro] 500 mg PO BID #28 tablet 01/08/18 Unknown Rx Phenazopyridine [Pyridium] 100 mg PO TID #6 tab 01/08/18 Unknown Rx Amlodipine Besylate [Norvasc] 10 mg PO QAM 30 Days #30 tablet 11/03/18 Unknown Rx Amoxicillin/K Clav Tab [Augmentin 1 tab PO Q12HR #20 tab 11/03/18 Unknown Rx 875MG TAB] Cetirizine HCl [ZyrTEC] 10 mg PO QAM 14 Days #14 capsule 11/03/18 Unknown Rx Fluticasone [Flonase] 1 spray NS QDAY 14 Days #1 bottle 11/03/18 Unknown Rx Ibuprofen [Motrin] 600 mg PO Q8H PRN #12 tablet 11/03/18 Unknown Rx hydroCHLOROthiazide [HCTZ] 25 mg PO QDAY 30 Days #30 tablet 11/03/18 Unknown Rx predniSONE [Deltasone] 50 mg PO QDAY 3 Days #3 tab 11/03/18 Unknown Rx Colchicine 2 tab PO Q1H #3 capsule 10/26/19 Unknown Rx Ibuprofen [Motrin 400 MG tab] 400 mg PO TID 3 Days #9 tablet 10/26/19 Unknown Rx Lisinopril/Hydrochlorothiazide 1 tab PO QDAY 30 Days #30 tab 10/26/19 Unknown Rx [Zestoretic 20-25 mg] oxyCODONE /ACETAMINOPHEN [Percocet 1 tab PO Q6HR PRN #10 tablet 10/26/19 Unknown Rx 5/325] Ciprofloxacin HCl [Ciprofloxacin 500 mg PO Q12HR #20 tab 12/15/19 Unknown Rx TAB] Diphenoxylate/Atropine [Lomotil] 1 - 2 tab PO QID PRN #20 tablet 12/15/19 Unkno wn Rx HYDROcodone/APAP 5-325 [[place] 1 - 2 each PO Q6HR PRN #14 tablet 12/15/19 Unknown Rx 5/325] metroNIDAZOLE [Flagyl] 500 mg PO Q8HR #30 tablet 12/15/19 Unknown Rx Valsartan/Hydrochlorothiazide 1 each PO DAILY #30 tablet 11/26/21 Unknown Rx [Valsartan-Hctz 80-12.5 mg Tab] ED Physical Exam - General Limitations: No Limitations General appearance: alert, in no apparent distress, other (Well-appearing nontoxic) - Head Head exam: Present: atraumatic, normocephalic - Eye Eye exam: Present: normal appearance - ENT ENT exam: Present: mucous membranes moist - Neck Neck exam: Present: normal inspection, full ROM - Respiratory Respiratory exam: Present: normal lung sounds bilaterally. Absent: respiratory distress, wheezes, rales, rhonchi, stridor - Cardiovascular Cardiovascular Exam: Present: regular rate, normal rhythm, normal heart sounds. Absent: systolic murmur, diastolic murmur, rubs, gallop - GI/Abdominal GI/Abdominal exam: Present: soft, normal bowel sounds. Absent: distended, tenderness, guarding, rebound - Rectal Rectal exam: Present: deferred - Extremities Exam Extremities exam: Present: normal inspection - Neurological Exam Neurological exam: Present: alert, oriented X3 - Psychiatric Psychiatric exam: Present: normal affect, normal mood - Skin Skin exam: Present: warm, dry, intact, normal color. Absent: rash ED Course Vital Signs 11/26/21 17:10 Temperature 98.4 F Pulse Rate 62 Respiratory 17 Rate Blood Pressure 211/101 O2 Sat by Pulse 97 Oximetry ED Medical Decision Making - Medical Decision Making 1. Generalized weakness with nondescript abdominal dyspepsia consideration of viral syndrome, food poisoning, peptic ulcer disease. Patient improved with self-care at home with hydration 2. Hypertensive urgency due to medication noncompliance without signs symptoms of endorgan damage prescribed amlodipine valsartan. Critical care attestation.: If time is entered above; I have spent that time in minutes in the direct care of this critically ill patient, excluding procedure time. ED Disposition Clinical Impression: Viral syndrome, Hypertensive urgency Disposition: HOME / SELF CARE / HOMELESS Is pt being admited?: No Does the pt Need Aspirin: No Condition: Stable Instructions: Viral Illness, Adult, Managing Your Hypertension Prescriptions: Valsartan/Hydrochlorothiazide [Valsartan-Hctz 80-12.5 mg Tab] 1 each PO DAILY #30 tablet Referrals: ULISES BRANTLEY MD [Staff Physician] - 3-5 Days Forms: Work/School Release Form(ED)
[2021-11-26 18:59] VITALS: BP 206/92
== END 2021-11-26 18:59 | disposition home or self-care (01) ==
LOC: ED 14:11
DX: B34.9 Viral infection, unspecified (principal); I16.0 Hypertensive urgency
CPT/HCPCS: 99282

== ENCOUNTER 2022-07-08 09:25 | Emergency (ER) | payer OTHER ==
--- NOTE | 2022-07-08 11:05 | XRay Report ---
CHEST 2 VIEWS INDICATION / CLINICAL INFORMATION: Chest Pain. COMPARISON: None available. FINDINGS: SUPPORT DEVICES: None. HEART / MEDIASTINUM: No significant abnormality. LUNGS / PLEURA: Minor bibasilar atelectatic changes are identified. No significant pulmonary or pleur al abnormality. No pneumothorax. ADDITIONAL FINDINGS: No significant additional findings. IMPRESSION: 1. Mild bibasilar atelectatic changes. No acute process. Signer Name: Hua Talbot Jr, MD Signed: 07/08/2022 11:01 AM Workstation Name: [id number]
[2022-07-08] MEDS ORDERED: hydrALAZINE 20 MG/1 ML INJ IV ONE (20:31)
--- NOTE | 2022-07-08 20:33 | Event Note ---
Date: 07/08/22 Medical screening examination note: 62-year-old gentleman presenting with dizziness, and hypertension and nonspecific chest discomfort. He is markedly hypertensive and ambulatory with a steady gait. He is protecting his airway and moving [address] patient on painter helper spray. Obtain appropriate laboratory studies, x-ray the chest, noncontrast CT scan of the brain. Administer hydralazine. Detailed history and physical to be performed by oncoming provider Patient is awake and alert, cooperative, protecting airway, and not en cephalopathic Vital Signs 07/08/22 10:23 Temperature 98.9 F Pulse Rate 63 Blood Pressure 263/110 [Right] O2 Sat by Pulse 98 Oximetry
--- NOTE | 2022-07-08 21:12 | Cat Scan Report ---
CT head/brain wo con INDICATION: Dizziness and hypertension. TECHNIQUE: All CT scans at this location are performed using CT dose reduction for ALARA by means of automated e xposure control. COMPARISON: None available. FINDINGS: There is no evidence of hemorrhage, hydrocephalus, brain edema, or mass effect/mass lesion. There is overall normal brain formation and brain volume for the patient's age. Ventricular and cisternal/sulc al size is normal for age. The included paranasal sinuses and mastoid air cells are clear. The orbits appear unremarkable. IMPRESSION: 1. No acute findings. Signer Name: Pedro Benitez MD Signed: 07/08/2022 9:07 PM Workstation Name: [id number]
[2022-07-08] MEDS ORDERED: ASPIRIN 325 MG TAB PO ONE (21:24)
[2022-07-08 21:57] LABS: Alanine Aminotransferase 20 units/L (7-56); Albumin 4.4 g/dL (3.9-5); BUN/Creatinine Ratio 16; Blood Urea Nitrogen 13 mg/dL (9-20); Calcium 10.1 mg/dL (8.4-10.2); Hemolysis Index 15
[2022-07-08 21:59] LABS: Basophils # (Auto) 0.1 K/mm3 (0.0-0.1); Basophils % (Auto) 0.7 % (0.0-1.8); Eosinophils # (Auto) 0.2 K/mm3 (0.0-0.4); Eosinophils % (Auto) 1.8 % (0.0-4.3); Hematocrit 44.9 % (35.5-45.6); Hemoglobin 14.6 gm/dl (11.8-15.2); Lymphocytes # (Auto) 1.7 K/mm3 (1.2-5.4); Lymphocytes % (Auto) 16.6 % (13.4-35.0); Mean Corpuscular HGB Conc 33 % (32-34); Mean Corpuscular Volume 77 fl (84-94); Monocytes # (Auto) 0.5 K/mm3 (0.0-0.8); Monocytes % (Auto) 4.9 % (0.0-7.3); Platelet Count 243 K/mm3 (140-440); Red Blood Count 5.82 M/mm3 (3.65-5.03); Red Cell Distribution Width 16.7 % (13.2-15.2)
[2022-07-08 22:42] LABS: INR 1.05 (0.87-1.13)
[2022-07-09] MEDS ORDERED: cloNIDine 0.2 MG TAB PO ONE (00:33)
[2022-07-09 01:02] LABS: Amphetamine Screen,Urine PRESUMPTIVE NEGATIVE; Benzodiazepines Screen,Urine PRESUMPTIVE NEGATIVE; Cannabinoid Screen,Urine PRESUMPTIVE NEGATIVE; Cocaine Screen,Urine PRESUMPTIVE NEGATIVE; Methadone Screen,Urine PRESUMPTIVE NEGATIVE; Opiate Screen,Urine PRESUMPTIVE NEGATIVE
[2022-07-09 01:33] VITALS: BP 158/61
--- NOTE | 2022-07-09 01:35 | Emergency Department Report ---
ED General Adult HPI - General Chief complaint: Chest Pain Stated complaint: HBP/DIZZY/CHEST PAIN PUI?: No Time Seen by Provider: 07/08/22 21:15 Source: patient Mode of arrival: Ambulatory Limitations: No Limitations - History of Present Illness Initial comments: Patient present to ED with c/o dizzines, htn, and chest pain x 2 weeks. Patient states he is out of blood pressure meds -: Gradual, week(s) Severity scale (0 -10): 0 Improves with: none Associated Symptoms: denies: denies other symptoms, confusion, chest pain, cough , diaphoresis - Related Data Previous Rx's Medication Instructions Recorded Last Taken Type Ibuprofen [Motrin 400 MG tab] 400 mg PO Q8H PRN #20 tablet 03/01/16 Unknown Rx amLODIPine 5 mg PO DAILY #30 tab 03/01/16 Unknown Rx traMADoL [Ultram 50 MG tab] 50 mg PO Q6HR PRN #20 tablet 03/01/16 Unknown Rx Acetaminophen [Acetaminophen TAB] 500 mg PO Q6HR PRN #20 tablet 01/08/18 Unknown Rx Ciprofloxacin HCl [Cipro] 500 mg PO BID #28 tablet 01/08/18 Unknown Rx Phenazopyridine [Pyridium] 100 mg PO TID #6 tab 01/08/18 Unknown Rx Amlodipine Besylate [Norvasc] 10 mg PO QAM 30 Days #30 tablet 11/03/18 Unknown Rx Amoxicillin/K Clav Tab [Augmentin 1 tab PO Q12HR #20 tab 11/03/18 Unknown Rx 875MG TAB] Cetirizine HCl [ZyrTEC] 10 mg PO QAM 14 Days #14 capsule 11/03/18 Unknown Rx Fluticasone [Flonase] 1 spray NS QDAY 14 Days #1 bottle 11/03/18 Unknown Rx Ibuprofen [Motrin] 600 mg PO Q8H PRN #12 tablet 11/03/18 Unknown Rx hydroCHLOROthiazide [HCTZ] 25 mg PO QDAY 30 Days #30 tablet 11/03/18 Unknown Rx predniSONE [Deltasone] 50 mg PO QDAY 3 Days #3 tab 11/03/18 Unknown Rx Colchicine 2 tab PO Q1H #3 capsule 10/26/19 Unknown Rx Ibuprofen [Motrin 400 MG tab] 400 mg PO TID 3 Days #9 tablet 10/26/19 Unknown Rx Lisinopril/Hydrochlorothiazide 1 tab PO QDAY 30 Days #30 tab 10/26/19 Unknown Rx [Zestoretic 20-25 mg] oxyCODONE /ACETAMINOPHEN [Percocet 1 tab PO Q6HR PRN #10 tablet 10/26/19 Unknown Rx 5/325] Ciprofloxacin HCl [Ciprofloxacin 500 mg PO Q12HR #20 tab 12/15/19 Unknown Rx TAB] Diphenoxylate/Atropine [Lomotil] 1 - 2 tab PO QID PRN #20 tablet 12/15/19 Unknown Rx HYDROcodone/APAP 5-325 [[place] 1 - 2 each PO Q6HR PRN #14 tablet 12/15/19 Unknown Rx 5/325] metroNIDAZOLE [Flagyl] 500 mg PO Q8HR #30 tablet 12/15/19 Unknown Rx Valsartan/Hydrochlorothiazide 1 each PO DAILY #30 tablet 11/26/21 Unknown Rx [Valsartan-Hctz 80-12.5 mg Tab] Valsartan/Hydrochlorothiazide 1 each PO DAILY #30 07/09/22 Unknown Rx [Valsartan-Hctz 80-12.5 mg Tab] amLODIPine 5 mg PO DAILY #30 tab 07/09/22 Unknown Rx Allergies Allergy/AdvReac Type Severity Reaction Status Date / Time No Known Allergies Allergy Verified 11/26/21 17:13 ED Review of Systems ROS: Stated complaint: HBP/DIZZY/CHEST PAIN Other details as noted in HPI Constitutional: denies: chills, fever Eyes: denies: eye pain, eye discharge, vision change ENT: denies: ear pain, throat pain Respiratory: denies: cough, shortness of breath, wheezing Cardiovascular: denies: chest pain, palpitations Endocrine: no symptoms reported Gastrointestinal: denies: abdominal pain, nausea, diarrhea Genitourinary: denies: urgency, dysuria Musculoskeletal: denies: back pain, joint swelling, arthralgia Skin: denies: rash, lesions Neurological: denies: headache, weakness, paresthesias Psychiatric: denies: anxiety, depression Hematological/Lymphatic: denies: easy bleeding, easy bruising ED Past Medical Hx - Past Medical History Previous Medical History?: Yes Hx Hypertension: Yes (no meds x 2 yrs) Hx CVA: No Additional medical history: ulcers, anemia, GOUT - Surgical History Past Surgical History?: No - Social History Smoking Status: Never Smoker - Medications Home Medications: Home Medications Medication Instructions Recorded Confirmed Last Taken Type Ibuprofen [Motrin 400 MG tab] 400 mg PO Q8H PRN #20 tablet 03/01/16 Unknown Rx amLODIPine 5 mg PO DAILY #30 tab 03/01/16 Unknown Rx traMADoL [Ultram 50 MG tab] 50 mg PO Q6HR PRN #20 tablet 03/01/16 Unknown Rx Acetaminophen [Acetaminophen TAB] 500 mg PO Q6HR PRN #20 tablet 01/08/18 Unknown Rx Ciprofloxacin HCl [Cipro] 500 mg PO BID #28 tablet 01/08/18 Unknown Rx Phenazopyridine [Pyridium] 100 mg PO TID #6 tab 01/08/18 Unknown Rx Amlodipine Besylate [Norvasc] 10 mg PO QAM 30 Days #30 tablet 11/03/18 Unknown Rx Amoxicillin/K Clav Tab [Augmentin 1 tab PO Q12HR #20 tab 11/03/18 Unknown Rx 875MG TAB] Cetirizine HCl [ZyrTEC] 10 mg PO QAM 14 Days #14 capsule 11/03/18 Unknown Rx Fluticasone [Flonase] 1 spray NS QDAY 14 Days #1 bottle 11/03/18 Unknown Rx Ibuprofen [Motrin] 600 mg PO Q8H PRN #12 tablet 11/03/18 Unknown Rx hydroCHLOROthiazide [HCTZ] 25 mg PO QDAY 30 Days #30 tablet 11/03/18 Unknown Rx predniSONE [Deltasone] 50 mg PO QDAY 3 Days #3 tab 11/03/18 Unknown Rx Colchicine 2 tab PO Q1H #3 capsule 10/26/19 Unknown Rx Ibuprofen [Motrin 400 MG tab] 400 mg PO TID 3 Days #9 tablet 10/26/19 Unknown Rx Lisinopril/Hydrochlorothiazide 1 tab PO QDAY 30 Days #30 tab 10/26/19 Unknown Rx [Zestoretic 20-25 mg] oxyCODONE /ACETAMINOPHEN [Percocet 1 tab PO Q6HR PRN #10 tablet 10/26/19 Unknown Rx 5/325] Ciprofloxacin HCl [Ciprofloxacin 500 mg PO Q12HR #20 tab 12/15/19 Unknown Rx TAB] Diphenoxylate/Atropine [Lomotil] 1 - 2 tab PO QID PRN #20 tablet 12/15/19 Unknown Rx HYDROcodone/APAP 5-325 [[place] 1 - 2 each PO Q6HR PRN #14 tablet 12/15/19 Unknown Rx 5/325] metroNIDAZOLE [Flagyl] 500 mg PO Q8HR #30 tablet 12/15/19 Unknown Rx Valsartan/Hydrochlorothiazide 1 each PO DAILY #30 tablet 11/26/21 Unknown Rx [Valsartan-Hctz 80-12.5 mg Tab] Valsartan/Hydrochlorothiazide 1 each PO DAILY #30 07/09/22 Unknown Rx [Valsartan-Hctz 80-12.5 mg Tab] amLODIPine 5 mg PO DAILY #30 tab 07/09/22 Unknown Rx ED Physical Exam - General Limitations: No Limitations General appearance: alert, in no apparent distress - Head Head exam: Present: atraumatic, normocephalic - Eye Eye exam: Present: normal appearance - ENT ENT exam: Present: mucous membranes moist - Neck Neck exam: Present: normal inspection - Respiratory Respiratory exam: Present: normal lung sounds bilaterally. Absent: respiratory distress - Cardiovascular Cardiovascular Exam: Present: regular rate, normal rhythm. Absent: systolic murmur, diastolic murmur, rubs, gallop - GI/Abdominal GI/Abdominal exam: Present: soft, normal bowel sounds - Rectal Rectal exam: Present: deferred - Extremities Exam Extremities exam: Present: normal inspection - Back Exam Back exam: Present: normal inspection - Neurological Exam Neurological exam: Present: alert, oriented X3 - Psychiatric Psychiatric exam: Present: normal affect, normal mood - Skin Skin exam: Present: warm, dry, intact, normal color. Absent: rash ED Course Vital Signs 07/08/22 07/08/22 07/08/22 10:23 20:30 20:40 Temperature 98.9 F 97.8 F Pulse Rate 63 69 Respiratory 20 21 Rate Blood Pressure Blood Pressure 263/110 251/116 [Right] O2 Sat by Pulse 98 99 98 Oximetry 07/08/22 07/08/22 07/08/22 20:42 20:56 20:57 Temperature Pulse Rate 56 L 67 Respiratory 20 21 14 Rate Blood Pressure Blood Pressure [Right] O2 Sat by Pulse 99 98 96 Oximetry 07/08/22 07/08/22 07/08/22 21:01 21:03 21:05 Temperature Pulse Rate 50 L 59 L Respiratory 21 25 H Rate Blood Pressure 251/116 249/107 Blood Pressure 249/107 [Right] O2 Sat by Pulse 99 Oximetry 07/08/22 07/08/22 07/08/22 21:15 21:30 21:45 Temperature Pulse Rate 70 71 66 Respiratory 26 H 30 H 31 H Rate Blood Pressure 249/107 206/86 205/78 Blood Pressure [Right] O2 Sat by Pulse 100 100 99 Oximetry 07/08/22 07/08/22 07/08/22 22:00 22:15 22:31 Temperature Pulse Rate 67 67 110 H Respiratory 23 21 28 H Rate Blood Pressure 209/81 204/84 204/84 Blood Pressure [Right] O2 Sat by Pulse 100 100 97 Oximetry 07/08/22 07/08/22 07/08/22 22:45 23:00 23:15 Temperature Pulse Rate 73 70 71 Respiratory 21 20 22 Rate Blood Pressure 198/90 214/88 215/90 Blood Pressure [Right] O2 Sat by Pulse 100 98 99 Oximetry 07/08/22 07/08/22 07/09/22 23:30 23:45 00:00 Temperature Pulse Rate 70 110 H 72 Respiratory 23 34 H 19 Rate Blood Pressure 217/91 213/127 225/94 Blood Pressure [Right] O2 Sat by Pulse 98 99 100 Oximetry 07/09/22 07/09/22 07/09/22 00:15 00:30 00:37 Temperature Pulse Rate 70 71 78 Respiratory 22 21 Rate Blood Pressure 228/92 217/81 228/118 Blood Pressure [Right] O2 Sat by Pulse 98 100 Oximetry 07/09/22 07/09/22 07/09/22 00:45 01:00 01:15 Temperature Pulse Rate 75 70 61 Respiratory 21 21 17 Rate Blood Pressure 216/78 207/80 180/69 Blood Pressure [Right] O2 Sat by Pulse 100 98 100 Oximetry 07/09/22 01:30 Temperature Pulse Rate 54 L Respiratory 18 Rate Blood Pressure 158/61 Blood Pressure [Right] O2 Sat by Pulse 99 Oximetry ED Medical Decision Making - Lab Data Result diagrams: 07/08/22 21:07 07/08/22 21:07 - EKG Data -: EKG Interpreted by [place] EKG shows normal: sinus rhythm - EKG Data Interpretation: no acute changes, LVH - Radiology Data Radiology results: report reviewed, image reviewed - Medical Decision Making work up negative , hydrlaazine givena nd clondine BP is 160/80 before d.c Critical care attestation.: If time is entered above; I have spent that time in minutes in the direct care of this critically ill patient, excluding procedure time. ED Disposition Clinical Impression: Uncontrolled hypertension Disposition: 01 HOME / SELF CARE / HOMELESS Is pt being admited?: No Does the pt Need Aspirin: No Condition: Stable Instructions: Hypertension (ED), Hypertension, Adult, [id number] Prescriptions: amLODIPine 5 mg PO DAILY #30 tab Valsartan/Hydrochlorothiazide [Valsartan-Hctz 80-12.5 mg Tab] 1 each PO DAILY # 30 Referrals: ULISES BRANTLEY MD [Primary Care Provider] - 3-5 Days
[2022-07-09 02:50] LABS: Hyaline Casts,Urine 1 /LPF
[2022-07-09 03:17] LABS: Color,Urine Yellow (Yellow)
[2022-07-09 03:19] LABS: Bilirubin,Urine 2+ (Negative); Blood,Urine Negative (Negative); Protein,Urine <15 mg/dL mg/dL (Negative)
[2022-07-09 03:20] LABS: Ictotest,Urine Negative (Negative)
--- NOTE | 2022-07-10 14:37 | Electrocardiograph Report ---
[facility] Test Date: 2022-07-08 Test Time: 10:52:28 Pat Name: MANDY YANG Department: Room: Gender: M [employer]: TECH : 1960 Requested By: ED DOC Order Number: [id number] Reading MD: Melania Barrera Measurements Intervals [place] Rate: 53 P: 49 NE: 175 QRS: -8 QRSD: 117 T: 144 QT: 424 QTc: 399 Interpretive Statements Sinus rhythm Probable left atrial enlargement LVH with secondary repolarization abnormality No previous ECG available for comparison Electronically Signed On 07-10-2022 14:37:31 EDT by Melania Barrera
== END 2022-07-09 01:45 | disposition home or self-care (01) ==
LOC: ED 09:25
DX: I10 Essential (primary) hypertension (principal); Z79.899 Other long term (current) drug therapy
CPT/HCPCS: 36415; 70450; 71046; 80053; 80307; 81001; 83690; 84484; 85025; 85610; 93005; 96374; 99285; J0360